=== PATIENT | female | born 1975 ===

== ENCOUNTER 2022-04-29 04:43 | Inpatient (IN) | payer OTHER ==
[~2022-04-29] VITALS: Ht 165.1 cm; Wt 68.0 kg
[2022-04-29] MEDS ORDERED: CHILDREN'S ASPI81 MG PO (05:54)
[2022-04-29] MEDS ORDERED: PRENATAL + DHA1 EAC1 (05:55)
== END 2022-05-01 12:03 | disposition home or self-care (01) | DRG 807 ==
LOC: OB/GYN 04:43 → LDR 04:43 → OB/GYN 10:32
PROVIDERS: ADMIT Obstetrics & Gynecology; ATTEND Obstetrics & Gynecology
PROC: 10E0XZZ Delivery of Products of Conception, External Approach (ICD-10-PCS; principal; 2022-04-29)
PROC: 0HQ9XZZ Repair Perineum Skin, External Approach (ICD-10-PCS; 2022-04-29)
PROC: 3E0P7VZ Introduction of Hormone into Female Reproductive, Via Natural or Artificial Opening (ICD-10-PCS; 2022-04-29)
PROC: 3E033VJ Introduction of Other Hormone into Peripheral Vein, Percutaneous Approach (ICD-10-PCS; 2022-04-29)
PROC: 4A1HXCZ Monitoring of Products of Conception, Cardiac Rate, External Approach (ICD-10-PCS; 2022-04-29)
DX: O70.0 First degree perineal laceration during delivery (principal); Z37.0 Single live birth; Z3A.40 40 weeks gestation of pregnancy; Z20.822 Contact with and (suspected) exposure to COVID-19

== ENCOUNTER 2024-10-25 05:01 | Day surgery (SDC) | payer OTHER ==
[2024-10-19 09:21] VITALS: BP 119/68
[2024-10-19 10:12] LABS: URINE APPEARANCE Clear; URINE BILIRRUBIN Negative (NEGATIVE); URINE BLOOD Trace; URINE COLOR Yellow; URINE GLUCOSE Negative (NEGATIVE); URINE KETONE Negative (NEGATIVE); URINE LEUKOCYTE Negative; URINE NITRATE Negative; URINE PROTEIN Negative (NEGATIVE); URINE UROBILINOGEN 0.2 E.U./dl
[2024-10-19 10:15] LABS: URINE BACTERIA 79.5 uL (0.0-1933); URINE EPITHELIAL CELLS 1.5 uL (0.0-38.8); URINE WBC 5.5 uL (0.0-23.2)
[2024-10-19 10:16] LABS: HEMATOCRIT 38.7 % (36.0-45.00); HEMOGLOBIN 12.9 g/dL (12.0-15.00); MEAN CELL VOLUME 85.8 fL (80.00-100.00); MEAN CORPUSCULAR HEMOGLOBIN 28.6 pg (27.00-32.0); MEAN CORPUSCULAR HGB CONC 33.3 g/dl (32.0-36.0); PLATELET COUNT 183 K/uL (150-450); RED BLOOD COUNT 4.51 M/uL (4.00-6.00); RED CELL DISTRIBUTION WIDTH 13.1 % (11.5-14.5)
[2024-10-19 10:18] LABS: URINE RBC 1.9 uL (0.0-20.8)
[2024-10-19 10:47] LABS: INR 1.01; PARTIAL THROMBOPLASTIN TIME 27.1 SECONDS (22.0-34.0)
[2024-10-19 11:38] LABS: ALBUMIN 4.1 gm/dL (3.4-5.0); BILIRUBIN TOTAL 0.78 mg/dL (0.3-1.2); CALCIUM 9.4 mg/dL (8.5-10.1); CREATININE SERUM 0.6 mg/dL (0.55-1.02); GFR 107.16; GLOBULINA 3.3 G/DL (2.4-3.5); POTASSIUM 4.63 mEq/L (3.5-5.1); TOTAL PROTEIN 7.4 gm/dL (6.4-8.2)
[~2024-10-25] VITALS: Ht 165.1 cm; Wt 58.5 kg
[~2024-10-25 05:01] MED LIST: CHILDREN'S ASPI81 MG PO; PRENATAL + DHA1 EAC1
[2024-10-25] MEDS ORDERED: POVIDONE-IODINE 118 ML BOTT TOP ONE (06:59)
[2024-10-25] MEDS ORDERED: CHLORHEXIDINE GLUCONATE 120 ML BOTTLE TOP ONE (06:59)
[2024-10-25] MEDS ORDERED: ONDANSETRON HCL 2 MG/ML VIAL IV ONE (08:15)
[2024-10-25] MEDS ORDERED: KETOROLAC TROMETHAMINE 30 MG VIAL IV ONE (08:15)
[2024-10-25] MEDS ORDERED: KETOROLAC TROMETHAMINE 30 MG VIAL ONE (10:13)
== END 2024-10-25 11:40 | disposition home or self-care (01) ==
LOC: CIR.AMB 05:01
PROVIDERS: ATTEND Obstetrics & Gynecology
DX: N84.0 Polyp of corpus uteri (principal); N95.0 Postmenopausal bleeding